=== PATIENT | female | born 1960 | race Two or more races ===

== ENCOUNTER 2025-01-25 09:52 | Outpatient (RCR) | payer MEDICARE, MEDICAID, SELFPAY ==
--- NOTE | 2025-01-25 11:25 | PTNOTE_ITS ---
PT OP Initial Eval Patient Information Outpatient Physical Therapy Treatment Date: 01/25/25 Visit Reasons: Bilateral shoulder pain Medical Diagnosis: Bilateral Shoulder Pain Treatment Dx #1: Bilateral Shoulder Pain Start of Care: 01/25/25 Smoking Status Smoking Status: Never smoker Initial Assessment Subjective: Pt is a 64 y/o female reports of chronic shoulder pain R>L. Pt mentioned pain (7/10) started ~ 1 year ago. Pt recently received a cortisone shot on the right shoulder 2 weeks ago and it helped. Xray are negative. No MRI has been done thus far. Pt has limitation with overhead motions, lifting, chores, self care, cooking, cleaning, and performing recreational activities. Objective: Bilateral Shoulder AROM: all motions are WFL Bilateral Shoulder MMTs: grossly 3+/5 Bilateral Scapula MMTs: grossly 3/5 Assessment: Pt demonstrate bilateral shoulder pain R>L leading to difficulty with ADLs. Pt will benefit from physical therapy to increase ROM, strength, and work on overall stability. 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 1) Increase bilateral shoulder AROM WNL in 6 wks to be able to perform overhead motions 2) Decrease shoulder pain to 2/10 in 6 wks to be able to perform lifting activities 3) Increase bilateral shoulder MMTs grossly to 4-/5 in 6 wks to be able to perform recreational activities 4) Increase scapula MMTs grossly to 3+/5 in 6 wks to be able to perform ADLs 5) Indep with HEP Treatment Plan 1) Manual Therapy 2) Therapeutic Activities 3) Therapeutic Exercises 4) Modalities (ice, heat) Frequency and Duration: 2 x wk for 6 wks Certification Dates: 01/25/25 to 04/27/25 Procedure Charges OP PT Eval Mod Complex 30 minutes: Yes
== END 2025-01-28 23:59 | disposition home or self-care (01) ==
LOC: CPTX 09:52
PROVIDERS: PCP Family Medicine; Referring Provider Family Medicine; Visit Provider Family Medicine
DX: M25.512 Pain in left shoulder (principal); M25.511 Pain in right shoulder; G89.29 Other chronic pain
CPT/HCPCS: 97162

== ENCOUNTER 2025-02-22 10:30 | Outpatient (RCR) | payer MEDICARE, MEDICAID, SELFPAY ==
--- NOTE | 2025-02-01 11:44 | PT.ODAYNRPT ---
PT Outpatient Daily Note OP Daily Note Outpatient Physical Therapy Treatment Date: 02/01/25 Visit Reasons: BILATERAL SHOULDER PAIN Subjective: Pt just came from lab. Pt's shoulder hurting more since the eval. Objective: Please see flow chart for list of ther ex performed Assessment: tolerate exercises with minimal pain Plan: Continue with PT Length of Time (minutes) of Treatment: 30 Minutes Procedure Charges Therapeutic Exercise 30 minutes: Yes
--- NOTE | 2025-02-07 11:40 | PT.ODAYNRPT ---
PT Outpatient Daily Note OP Daily Note Outpatient Physical Therapy Treatment Date: 02/07/25 Visit Reasons: BILATERAL SHOULDER PAIN Subjective: Pt reported minimal soreness post last PT session. Objective: Please see flow sheet for ther ex list. Assessment: Pt tolerated interventions with minimal pain. Plan: Please see flow sheet for ther ex list. Length of Time (minutes) of Treatment: 30 Minutes Procedure Charges Therapeutic Exercise 30 minutes: Yes
--- NOTE | 2025-02-09 09:53 | PT.ODAYNRPT ---
PT Outpatient Daily Note OP Daily Note Outpatient Physical Therapy Treatment Date: 02/09/25 Visit Reasons: BILATERAL SHOULDER PAIN Subjective: Pt's shoulder is about the same. Pt has been noticing more left shoulder pain lately. Objective: Please see flow chart for list of ther ex performed Assessment: post ice today due to pain and soreness post PT session. Added YTB to exercise program with good tolerance Plan: Continue with PT Length of Time (minutes) of Treatment: 30 Minutes Procedure Charges Therapeutic Exercise 30 minutes: Yes
--- NOTE | 2025-02-15 11:52 | PT.ODAYNRPT ---
PT Outpatient Daily Note OP Daily Note Outpatient Physical Therapy Treatment Date: 02/15/25 Visit Reasons: BILATERAL SHOULDER PAIN Subjective: Pt's shoulder is better, however, left shoulder gives her trouble. Pt will like to complete most of her therapy session due to feeling much better overall Objective: Please see flow chart for list of ther ex performed Assessment: cues to correct form shoulder 4 way with ytb. Pt tolerate all exercises and continue to maintain good bilateral shoulder ROM Plan: Continue with PT Length of Time (minutes) of Treatment: 30 Minutes Procedure Charges Therapeutic Exercise 30 minutes: Yes
--- NOTE | 2025-02-20 11:00 | PT.ODAYNRPT ---
PT Outpatient Daily Note OP Daily Note Outpatient Physical Therapy Treatment Date: 02/20/25 Visit Reasons: BILATERAL SHOULDER PAIN Subjective: Pt reports B shoulders are doing a little better. C/o L shoulder pain today. Objective: Please see flow sheet for ther ex list. Assessment: Progressed thera band interventions pt tolerated well. Plan: Continue with POC. Length of Time (minutes) of Treatment: 30 Minutes Procedure Charges Therapeutic Exercise 30 minutes: Yes
--- NOTE | 2025-02-22 10:50 | PT.ODAYNRPT ---
PT Outpatient Daily Note OP Daily Note Outpatient Physical Therapy Treatment Date: 02/22/25 Visit Reasons: BILATERAL SHOULDER PAIN Subjective: Pt reports he has been having more pain in B shoulders but worse on L shoulder. Pt shared that she has an injection and feels it is starting to wear off. Objective: Please see flow sheet for ther ex list. Assessment: Slow progress with intervention due to pt pain response. Plan: Continue with POC. Length of Time (minutes) of Treatment: 30 Minutes Procedure Charges Therapeutic Exercise 30 minutes: Yes
== END 2025-02-27 23:59 | disposition home or self-care (01) ==
LOC: CPTX 10:30
PROVIDERS: PCP Family Medicine; Referring Provider Family Medicine; Visit Provider Family Medicine
DX: M25.512 Pain in left shoulder (principal); M25.511 Pain in right shoulder; G89.29 Other chronic pain
CPT/HCPCS: 97110

== ENCOUNTER 2025-03-21 10:30 | Outpatient (RCR) | payer MEDICARE, MEDICAID, SELFPAY ==
--- NOTE | 2025-02-28 14:24 | PT.ODAYNRPT ---
PT Outpatient Daily Note OP Daily Note Outpatient Physical Therapy Treatment Date: 02/28/25 Visit Reasons: bilateral shoulder pain Subjective: Pt reports B shoulders are doing a little better. Objective: Please see flow sheet for ther ex list. Assessment: Added ER door stretch exercise, pt was able to perform with good tolerance. Plan: Continue with poC.assess response to treatment. Length of Time (minutes) of Treatment: 30 Minutes Procedure Charges Therapeutic Exercise 30 minutes: Yes
--- NOTE | 2025-03-07 11:02 | PT.ODAYNRPT ---
PT Outpatient Daily Note OP Daily Note Outpatient Physical Therapy Treatment Date: 03/07/25 Visit Reasons: bilateral shoulder pain Subjective: Pt c/o B shoulder pain, feels like the pain injection is weating off. Objective: Please see flow sheet for ther ex list. Assessment: Pt demonstrates por activity tolerance due to aggravating symptoms with interventions assigned. Plan: Continue with poC. Length of Time (minutes) of Treatment: 30 Minutes Procedure Charges Therapeutic Exercise 30 minutes: Yes
--- NOTE | 2025-03-14 10:37 | PT.ODAYNRPT ---
PT Outpatient Daily Note OP Daily Note Outpatient Physical Therapy Treatment Date: 03/14/25 Visit Reasons: bilateral shoulder pain Subjective: Pt reports shoulder continue to hurt, notice injections are wearing off. Objective: Please see flow sheet for ther ex list. Assessment: Pt can perform light strengthening interventions but c/o pain. Plan: Continue with pOC. Length of Time (minutes) of Treatment: 30 Minutes EARLY EDUCATION TEACHER Service Modifier Method I: Divide the number of min of care provided by the EARLY EDUCATION TEACHER/CHIEF OF SAFETY AND PROTECTION by the total min of care provided then multiply by 100. If greater than 11 percent modifier is required. Method II: Divide the total time of care provided to patient by 10 (round to the nearest whole number) and add 1 min. to set the minimum time requirement. If treatment total was 60 min., then 10% of 6 min PT CQ modifier applied: CQ Modifier applied Procedure Charges Therapeutic Exercise 30 minutes: Yes
--- NOTE | 2025-03-16 10:39 | PTNOTE_ITS ---
PT Outpatient Daily Note OP Daily Note Outpatient Physical Therapy Treatment Date: 03/16/25 Visit Reasons: bilateral shoulder pain Subjective: No new complaints or progress to report at this time. Objective: Please see flow sheet for ther ex list. Assessment: Pt able to complete interventions assigned but continues to c/o pain with activity. Plan: Pt has one visit left, assess for note. Length of Time (minutes) of Treatment: 30 Minutes CATERING ASSISTANT Service Modifier Method I: Divide the number of min of care provided by the CATERING ASSISTANT/SAFE DEPOSIT CLERK by the total min of care provided then multiply by 100. If greater than 11 percent modifier is required. Method II: Divide the total time of care provided to patient by 10 (round to the nearest whole number) and add 1 min. to set the minimum time requirement. If treatment total was 60 min., then 10% of 6 min PT CQ modifier applied: CQ Modifier applied Procedure Charges Therapeutic Exercise 30 minutes: Yes
--- NOTE | 2025-03-21 11:40 | PT.ODS1RPT ---
PT OP Progress/Discharge Note Date of Service: 03/21/25 Progress Note/DC Note Progress Note/Discharge Note: DC Note Patient Information Visit Reasons: bilateral shoulder pain Medical Diagnosis: Bilateral Shoulder Pain Treatment Dx #1: Bilateral Shoulder Pain Service Continue Service or Discharge: Discharge Discharge Date: 03/21/25 Status Subjective: Pt's shoulder continues to hurt. Pt's shoulder seems to feel worse after the cortisone shot wore off. Pt continues to have limitation with overhead motions, chores, self care, cooking, cleaning, and performing recreational activities. Objective: Bilateral Shoulder AROM: all motions are WFL with pain in all plane Bilateral Shoulder MMTs: grossly 3+/5 Bilateral Scapula MMTs: grossly 3+/5 Assessment: Pt demonstrate functional bilateral shoulder AROM and strength, however, continues to have pain leading to difficulty with ADLs. Pt will no longer benfit from physical therapy due to plateau towards goals. Pt instructed on HEP last session and educated to continue exercises to maintain overall mobility. Pt performed all exercises safely, thank you for your referrals Plan: D/C home with HEP and follow up with MD Recommend shoulder MRI per provider's discretion Procedure Charges Therapeutic Exercise 30 minutes: Yes
== END 2025-03-30 23:59 | disposition home or self-care (01) ==
LOC: CPTX 10:30
PROVIDERS: PCP Family Medicine; Referring Provider Family Medicine; Visit Provider Family Medicine
DX: M25.512 Pain in left shoulder (principal); M25.511 Pain in right shoulder; G89.29 Other chronic pain
CPT/HCPCS: 97110

== ENCOUNTER → 2025-07-13 | Outpatient (CLI) | payer MEDICARE, MEDICAID, SELFPAY ==
--- NOTE | 2025-07-13 10:30 | XR_ITS ---
MRI shoulder, right, without contrast. Date and time: July 13, 2025, 1104 hours INDICATIONS: Right shoulder pain joint locking cramping decreased range of motion 2 years Technique: Multiple axial, sagittal and coronal sections of the shoulder have been obtained. Siemens high-resolution 1.5 Rina MRI scanner is utilized. Axial fat-suppressed sections, TR 2350, TE 18 T2-weighted coronal fat-saturated images, TR 3500, TE 7100 T1-weighted coronal images, TR 500, TE 15 T2-weighted sagittal fat-saturated images, TR 3500, TE 57 T1-weighted sagittal sections, TR 504, TE 13. Findings: Supraspinatus tendon insertion is intact. Infraspinatus tendon insertion is intact however significant fluid in the subacromial-subdeltoid bursa Subscapularis insertion is intact. Subscapularis bursa is small. Long head of the biceps is in the bicipital groove. No definite tear of the biceps superior labral anchor is seen. Retraction of the musculotendinous junction of the rotator cuff is not seen . Tendinosis pattern is moderate. Distance between the acromium and humeral head is 6.3 mm Atrophy of the supraspinatus muscle is moderate. Atrophy of the infraspinatus muscle is moderate. Sagittal sections demonstrate a horizontal acromion. Acromioclavicular joint demonstrates mild osteoarthritis . Osacromiale is not identified. Labral margins appear intact. Bony glenoid fossa on the sagittal sections does not demonstrate osseous defect. Occult fracture or area of avascular necrosis is not seen. Acromioclavicular joint separation is not visible. Defect in the posterolateral margin of the humeral head is not seen Impression: Rotator cuff appears grossly intact, however, significant fluid in the subdeltoid subacromial bursa, recommend this patient return for MR arthrography followed by post intra-articular contrast images of the shoulder to exclude small full-thickness rotator cuff tear
--- NOTE | 2025-07-13 12:00 | XR_ITS ---
Examination: Bone densitometry Date and time of exam: July 13, 2025, 1215 hours INDICATIONS: Menopause age 48 levothyroxine 10 years Technique: Lumbar spine and hip total bone mineralization values of an calculated. Peak reference and age match control results have been displayed. Findings: Lumbar spine total bone mineralization is 1.902 gm/cm2. This is 1.3 standard deviations below peak reference. This is 0.6 standard deviations above age-matched controls. Hip total bone mineralization is 0.923 gm/cm2 This is 0.3 standard deviations below peak reference. This is 0.9 standard deviations above age-matched controls Impression: There is osteopenia based on lumbar spine measurements. There is osteopenia based on hip measurements
== END | disposition home or self-care (01) ==
PROVIDERS: PCP Nurse Practitioner Family; Referring Provider Nurse Practitioner Family; Visit Provider Nurse Practitioner Family
DX: Z13.820 Encounter for screening for osteoporosis (principal); M24.811 Other specific joint derangements of right shoulder, not elsewhere classified; M85.89 Other specified disorders of bone density and structure, multiple sites
CPT/HCPCS: 73221; 77080